=== PATIENT | male | born 1995 | race Caucasian/White ===

== ENCOUNTER 2017-06-12 20:50 | Emergency (ER) | payer MEDICAID ==
[2017-06-12] MEDS ORDERED: Sodium Chloride 0.9% 1,000 ML IV ONE (23:14)
[2017-06-12] MEDS ORDERED: Sodium Chloride 0.9% 1,000 ML ONE (23:18)
[2017-06-12 23:30] LABS: BASO # 0.1 K/uL (0.0-0.2); EOS # 0.1 K/uL (0.0-0.7); EOS % 1.3 % (0.0-4.0); HEMATOCRIT 47.7 % (35.0-51.0); LYMPH # 2.5 K/uL (1.0-4.3); LYMPH % 39.6 % (20.0-40.0); MEAN CELL VOLUME 89.6 fL (80.0-94.0); MEAN CORPUSCULAR HGB CONC 34.6 g/dL (33.0-37.0); MEAN PLATELET VOLUME 10.5 fL (7.2-11.7); MONO # 0.6 K/uL (0.0-0.8); MONO % 9.8 % (0.0-10.0); NRBC % 0.1 % (0.0-2.0); RED CELL DISTRIBUTION WIDTH 12.4 % (11.5-14.5); WHITE BLOOD COUNT 6.4 K/uL (4.8-10.8)
[2017-06-12 23:42] LABS: ALKALINE PHOSPHATASE 42 U/L (38-126); ALT/SGPT 44 U/L (21-72); AST/SGOT 29 U/L (17-59); BLOOD UREA NITROGEN 19 mg/dL (9-20); CARBON DIOXIDE 34 mmol/L (22-30); CHLORIDE 100 mmol/L (98-107); GFR AFRICAN-AMERICAN > 60; GLUCOSE,RANDOM 82 mg/dL (75-110); POTASSIUM 3.7 mmol/L (3.6-5.2); SODIUM 139 mmol/L (132-148); TOTAL PROTEIN 8.9 g/dL (6.3-8.3)
[2017-06-12 23:43] LABS: ALB/GLOB RATIO 1.1 (1.0-2.1)
--- NOTE | 2017-06-13 00:03 | C.PDOC ---
History Of Present Illness Patient is a 21 y/o male who presents to the ED with a complaint of chronic periumbilical pain after eating out. Patient reports pain is consistent with eating fried chicken and pizza, but is not present when eating salad and vegetables. Patient has prior evaluation with Dr. Barney for stool parasites. No other physical complaints at this time. Time Seen by Provider: 06/12/17 23:06 Chief Complaint (Nursing): Abdominal Pain History Per: Patient History/Exam Limitations: no limitations Onset/Duration Of Symptoms: Days (chronic; when eating pizza and fried chicken) Current Symptoms Are (Timing): Still Present Context: Food Severity: Moderate Location Of Pain/Discomfort: Periumbilical Quality Of Discomfort: "Pain" Recent travel outside of the [place]: No Past Medical History Reviewed: Historical Data, Nursing Documentation, Vital Signs - Medical History PMH: No Chronic Diseases Surgical History: No Surg Hx Family History: States: No Known Family Hx - Social History Hx Alcohol Use: No Hx Substance Use: No - Immunization History Hx Influenza Vaccination: No Hx Pneumococcal Vaccination: No Review Of Systems Gastrointestinal: Positive for: Abdominal Pain (periumbilical) Physical Exam - Physical Exam Appears: Well, Non-toxic, No Acute Distress Skin: Normal Color, Warm, Dry Head: Atraumatic, Normacephalic Gastrointestinal/Abdominal: Soft, No Tenderness, Other (thin abdomen; dull to tympanic percussion. Negative Castaneda's, negative McBurney's) Neurological/Psych: Oriented x3, Normal Speech, Normal Cognition ED Course And Treatment - Laboratory Results Result Diagrams: 06/12/17 23:28 06/12/17 23:28 Medical Decision Making Medical Decision Making: Obstructive series XR and UA ordered. Toradol and IV fluids administered. Disposition - Disposition - Scribe Statement The provider has reviewed the documentation as recorded by the Scribe Mariluz Cohn All medical record entries made by the Scribe were at my direction and personally dictated by me. I have reviewed the chart and agree that the record accurately reflects my personal performance of the history, physical exam, medical decision making, and the department course for this patient. I have also personally directed, reviewed, and agree with the discharge instructions and disposition.
--- NOTE | 2017-06-13 00:03 | C.PDOC ---
History Of Present Illness Patient is a 21 y/o male who presents to the ED with a complaint of chronic periumbilical pain after eating out. Patient reports pain is consistent with eating fried chicken and pizza, but is not present when eating salad and vegetables. Patient has prior evaluation with Dr. Barney for stool parasites. No other physical complaints at this time. Time Seen by Provider: 06/12/17 23:06 Chief Complaint (Nursing): Abdominal Pain History Per: Patient History/Exam Limitations: no limitations Onset/Duration Of Symptoms: Days (chronic with eating fried chicken and pizza) Current Symptoms Are (Timing): Still Present Context: Food Severity: Moderate Location Of Pain/Discomfort: Periumbilical Quality Of Discomfort: "Pain" Recent travel outside of the [place]: No Past Medical History Reviewed: Historical Data, Nursing Documentation, Vital Signs Vital Signs: Last Vital Signs Temp 97.7 F 06/13/17 00:27 Pulse 60 06/13/17 00:27 Resp 20 06/13/17 00:27 BP 102/61 06/13/17 00:27 Pulse Ox 100 06/13/17 00:27 - Medical History PMH: No Chronic Diseases Surgical History: No Surg Hx Family History: States: No Known Family Hx - Social History Hx Alcohol Use: No Hx Substance Use: No - Immunization History Hx Influenza Vaccination: No Hx Pneumococcal Vaccination: No Review Of Systems Gastrointestinal: Positive for: Abdominal Pain (periumbilical) Physical Exam - Physical Exam Appears: Well, Non-toxic Skin: Normal Color, Warm, Dry Head: Atraumatic, Normacephalic Oral Mucosa: Moist Chest: Symmetrical Cardiovascular: Rhythm Regular, No Murmur Respiratory: Normal Breath Sounds, No Rales, No Rhonchi, No Wheezing Gastrointestinal/Abdominal: Soft, No Tenderness (negative Castaneda's and McBurney' s), Other (thin abdomen; alternatively dull and tympanic to percussion) Neurological/Psych: Oriented x3, Normal Speech, Normal Cognition ED Course And Treatment - Laboratory Results Result Diagrams: 06/12/17 23:28 06/12/17 23:28 Lab Interpretation: Normal - Radiology CXR: Interpreted by Me CXR Interpretation: Yes: No Acute Disease - Other Rad abd x 2 X-Ray: Interpreted by Me (+FOS) Progress Note: toradol, IVF Reevaluation Time: 00:02 Reassessment Condition: Improved Medical Decision Making Medical Decision Making: functional constipation, worse with street/junk food and improved with home cooking (fruits and vegetables) Diet and exercise and PO water educated. Obstructive series XR and UA ordered. Disposition Doctor Will See Patient In The: Office Counseled Patient/Family Regarding: Studies Performed, Diagnosis - Disposition Referrals: Sheri Barney MD [Staff Provider] - Disposition: HOME/ ROUTINE Disposition Time: 00:03 Condition: GOOD Additional Instructions: no more pizza nor fried chicken 7 fresh fruits and vegetables per day Drink plenty of water Drink a bottle of Mag Citrate now re-evluate your abdominal discomfort after using the bathroom 2-3 times. Occasional laxatives as needed. Prescriptions: Magnesium Citrate [[facility] Magnesium Citrate] 300 ml PO ONCE PRN #1 bottle PRN Reason: Constipation Instructions: Constipation (ED) Forms: [email or web address] ([place]) - Clinical Impression Clinical Impression: Abdominal colic - Scribe Statement The provider has reviewed the documentation as recorded by the Scribe Mariluz Cohn All medical record entries made by the Scribe were at my direction and personally dictated by me. I have reviewed the chart and agree that the record accurately reflects my personal performance of the history, physical exam, medical decision making, and the department course for this patient. I have also personally directed, reviewed, and agree with the discharge instructions and disposition.
[2017-06-13 00:28] VITALS: BP 102/61; PULSE 60; RESP 20; TEMP 97.7; O2SAT 100
--- NOTE | 2017-06-13 08:32 | RAD ---
PROCEDURE: Radiographs of the chest and abdomen (obstructive series) HISTORY: abd pain COMPARISON: No prior. TECHNIQUE: AP radiograph of the chest, with upright and supine radiographs of the abdomen. FINDINGS: CHEST: Lungs: Clear. Cardiovascular: Normal size heart. No pulmonary vascular congestion. Pleura: No pleural fluid. No pneumothorax. Other findings: None. ABDOMEN AND PELVIS: Bowel: Stool retention to transverse and ascending colon. No evidence of mechanical obstruction. Free air: None. Bones: Unremarkable. Other findings: None. IMPRESSION: No infiltrate. Stool retention. No evidence of mechanical bowel obstruction.
== END 2017-06-13 00:28 | disposition home or self-care (01) ==
LOC: C.ER 20:50
DX: R10.84 Generalized abdominal pain (principal)
CPT/HCPCS: 74022; 80053; 83690; 85025; 96374; 99284; J1885; J7040